=== PATIENT | male | born 1950 | race Caucasian/White ===

== ENCOUNTER 2016-11-05 11:32 | Emergency (ER) | payer OTHER ==
[2016-11-05 11:52] VITALS: BMI 19.3
--- NOTE | 2016-11-05 12:56 | PDOC ---
History of Present Illness - General Chief Complaint: Pain Stated Complaint: ABDOMINAL PAIN Time Seen by Provider: 11/05/16 12:39 History Source: Patient Exam Limitations: No Limitations - History of Present Illness Initial Comments: 66 yo M hx anxiety, diverticulitis, cholecystectomy presents with RLQ pain x1 day. He states that he has had multiple flares of diverticulitis in rob past, usually gets the pain in his RLQ rather than on the left side. He has been more anxious than usual, stating that he recently lost his anxiety medication, and due to state rules, has been unable to obtain a replacement prescription. Pain is moderate, nonradiating. No associated nausea, vomiting, or diarrhea. No fever. Past History - Past Medical History Allergies/Adverse Reactions: Allergies Allergy/AdvReac Type Severity Reaction Status Date / Time Cephalosporins Allergy Verified 11/05/16 11:50 tramadol Allergy Verified 11/05/16 11:50 Home Medications: Ambulatory Orders Albuterol Sulfate [Proair Respiclick] 90 mcg IH BID 11/05/16 Alprazolam 1 mg PO QID 11/05/16 Oxycodone HCl/Acetaminophen [Percocet 5-325 mg Tablet] 1 tab PO Q6H PRN #12 tablet MDD 4 tabs 11/05/16 COPD: Yes GI Disorders: Yes (LIVER) Psychiatric Problems: Yes (ANXIETY) - Surgical History Abdominal Surgery: Yes (HERNIA) Cholecystectomy: Yes Lung Surgery: Yes (R LUNG) - Psycho/Social/Smoking Cessation Hx Suicidal Ideation: No Smoking History: Former smoker Have you smoked in the past 12 months: Yes Number of Cigarettes Smoked Daily: 12 If you are a former smoker, when did you quit?: 3 MO Information on smoking cessation initiated: No Hx Alcohol Use: No Drug/Substance Use Hx: No Substance Use Type: None Review of Systems - Review of Systems Able to Perform ROS?: Yes Comments:: GENERAL/CONSTITUTIONAL: No fever or chills. No weakness. HEAD, EYES, EARS, NOSE AND THROAT: No change in vision. No ear pain or discharge. No sore throat. CARDIOVASCULAR: No chest pain or shortness of breath. RESPIRATORY: No cough, wheezing, or hemoptysis. GASTROINTESTINAL: No nausea, vomiting, diarrhea or constipation. +Abdominal pain. GENITOURINARY: No dysuria, frequency, or change in urination. MUSCULOSKELETAL: No joint or muscle swelling or pain. No neck or back pain. SKIN: No rash NEUROLOGIC: No headache, vertigo, loss of consciousness, or change in strength/ sensation. ENDOCRINE: No increased thirst. No abnormal weight change. HEMATOLOGIC/LYMPHATIC: No anemia, easy bleeding, or history of blood clots. ALLERGIC/IMMUNOLOGIC: No hives or skin allergy. *Physical Exam - Vital Signs Last Vital Signs Temp Pulse Resp BP Pulse Ox 97.4 F L 99 H 20 123/74 100 11/05/16 11:45 11/05/16 11:45 11/05/16 11:45 11/05/16 11:45 11/05/16 11:45 - Physical Exam Comments: GENERAL: Awake, alert, and fully oriented. Appears anxious. HEAD: No signs of trauma EYES: Pupils mid-dilated, but reactive. EOMI, sclera anicteric, conjunctiva clear ENT: Auricles normal inspection, hearing grossly normal, nares patent, oropharynx clear without exudates. Moist mucosa NECK: Normal ROM, supple, no lymphadenopathy, JVD, or masses LUNGS: Breath sounds equal, clear to auscultation bilaterally. No wheezes, and no crackles HEART: Regular rate and rhythm, normal S1 and S2, no murmurs, rubs or gallops ABDOMEN: Soft, +RLQ tenderness with guarding, normoactive bowel sounds. No rebound. No masses EXTREMITIES: Normal range of motion, no edema. No clubbing or cyanosis. No cords, erythema, or tenderness NEUROLOGICAL: Cranial nerves II through XII grossly intact. Normal speech, normal gait SKIN: Warm, Dry, normal turgor, no rashes or lesions noted. ED Treatment Course - LABORATORY CBC & Chemistry Diagram: 11/05/16 13:16 11/05/16 13:16 Medical Decision Making - Medical Decision Making 11/05/16 13:01 i-STOP Reference #: [id number]- Last rx for xanax was 10/21/16, 30 day supply. 11/05/16 18:[address] results discussed. He has eaten an entire tray of food. Stable for DC home. *DC/Admit/Observation/Transfer Diagnosis at time of Disposition: Abdominal pain Qualifiers: Abdominal location: right lower quadrant Qualified Code(s): R10.31 - Right lower quadrant pain - Discharge Dispostion Disposition: HOME Condition at time of disposition: Improved Admit: No - Prescriptions Prescriptions: Oxycodone HCl/Acetaminophen [Percocet 5-325 mg Tablet] 1 tab PO Q6H PRN #12 tablet MDD 4 tabs PRN Reason: Severe Pain - Referrals Referrals: Angelito Rod MD [Primary Care Provider] - - Patient Instructions Printed Discharge Instructions: DI for Abdominal Pain-Adult
[2016-11-05] MEDS ORDERED: ALPRAZolam 0.25 MG TABLET PO ONE (13:08)
[2016-11-05] MEDS ORDERED: morphine CARPU-JECT 4 MG/1 ML DISP.SYRIN IVPUSH ONE (13:08)
[2016-11-05] MEDS ORDERED: SODIUM CHLORIDE 1,000 ML IV STA (13:08)
[2016-11-05] MEDS ORDERED: morphine CARPU-JECT 4 MG/1 ML DISP.SYRIN ONE (13:22)
[2016-11-05] MEDS ORDERED: ALPRAZolam 0.25 MG TABLET ONE (13:24)
[2016-11-05 14:06] LABS: BASOPHIL 0.4 % (0-2.0); EOSINOPHIL 0.5 % (0-4.5); MCH 27.2 pg (25.7-33.7); MCHC 33.1 g/dl (32.0-35.9); MEAN CELL VOLUME 81.9 fl (80-96); MEAN PLT VOLUME 7.4 fl (7.5-11.1); NEUTROPHILS 76.7 % (42.8-82.8); PLATELET COUNT 309 K/MM3 (134-434); RDW 14.9 % (11.9-15.9); WHITE BLOOD COUNT 8.1 K/mm3 (4.0-10.0)
[2016-11-05 14:09] LABS: URINE APPEARANCE SLCLOUDY; URINE BILIRUBIN NEGATIVE (NEGATIVE); URINE BLOOD NEGATIVE (NEGATIVE); URINE COLOR YELLOW; URINE GLUCOSE (UA) NEGATIVE (NEGATIVE); URINE KETONE TRACE (NEGATIVE); URINE LEUK ESTERASE NEGATIVE (NEGATIVE); URINE NITRITE NEGATIVE (NEGATIVE); URINE PROTEIN NEGATIVE (NEGATIVE); URINE UROBILINOGEN NEGATIVE E.U./dl (0.2-1.0)
[2016-11-05 14:20] LABS: URINE MARIJUANA THC NEGATIVE ng/ml (CUTOFF=50)
[2016-11-05 14:38] LABS: ALBUMIN 4.1 g/dl (3.4-5.0); ANION GAP 11 (8-16); BILIRUBIN,TOTAL 0.4 mg/dL (0.2-1.0); CALCIUM 9.8 mg/dL (8.5-10.1); CO2 29 mmol/L (21-32); CREATININE 0.9 mg/dL (0.7-1.3); GLUCOSE,RANDOM 82 mg/dL (74-106); SGOT/AST 23 U/L (15-37); SGPT/ALT 40 U/L (12-78); TOT PROT 7.9 g/dl (6.4-8.2)
[2016-11-05 14:39] LABS: ALK PHOS 107 U/L (45-117)
[2016-11-05 19:11] VITALS: BP 114/65; PULSE 79; TEMP 98.6
== END 2016-11-05 19:12 | disposition home or self-care (01) ==
LOC: JER 11:32
PROC: 3E033NZ Introduction of Analgesics, Hypnotics, Sedatives into Peripheral Vein, Percutaneous Approach (ICD-10-PCS; principal; 2016-11-05)
DX: R10.31 Right lower quadrant pain (principal); J44.9 Chronic obstructive pulmonary disease, unspecified; F41.9 Anxiety disorder, unspecified; Z87.19 Personal history of other diseases of the digestive system
CPT/HCPCS: 36415; 74177-TC; 80053; 80307; 81003; 83690; 85025; 96374; 99283-25

== ENCOUNTER 2016-11-09 20:56 | Emergency (ER) | payer OTHER ==
[2016-11-09 21:06] VITALS: TEMP 98; BMI 19.8
[2016-11-09] MEDS ORDERED: ALPRAZolam 0.25 MG TABLET ONE (21:58)
--- NOTE | 2016-11-09 21:58 | PDOC ---
History of Present Illness - General History Source: Patient Exam Limitations: No Limitations - History of Present Illness Initial Comments: 11/09/16 22:13 The patient is a 66 year old male, with a significant past medical history of anxiety, diverticulitis(multiple flares in the past), mitral valve prolapse, and COPD, who presents to the emergency department complaining of abdominal pain for several days. The patient describes the pain as sharp and nonradiating in nature. The patient reports he has a history of chronic abdominal pain, but states his abdominal pain the past 2 days has been intolerable. The patient recently presented to the ED on 11/05/16 complaining of similar abdominal pain. As per ED documentation on 11/05/16 the patient reported he has been increasingly anxious s/p losing his anxiety medication and has been unable to obtain a replacement prescription due to state regulations. Today the patient reports he took unknown amounts of percocet and benadryl. The patient reports cutting his left forearm and right side of the neck secondary to severe abdominal pain. The patient denies any hallucinations (not seeing or hearing things) or previous suicidal ideations. The patient denies any fever, chills, cough, headache, or dizziness. The patient denies any nausea, vomiting, or changes in urinary output. The patient denies chest pain, diaphoresis, palpitations, or shortness of breath. Allergies: Cephalosporins, Ketorolac tromethamine, tramadol Past Surgical History: Cholecystectomy, hernia repair Social History: Non-smoker. Denies alcohol or drug use. <Jazzy Carroll - Last Filed: 11/10/16 06:18> - General History Source: Patient <Urbano Stark - Last Filed: 11/15/16 19:48> - General Chief Complaint: Psychiatric Stated Complaint: INJURY Time Seen by Provider: 11/09/16 21:39 Past History <Jazzy Carroll - Last Filed: 11/10/16 06:18> - Past Medical History Cardiac Disorders: Yes (MITRAL VALVE PROLAPSE) COPD: Yes GI Disorders: Yes (DIVERTICULITIS) Psychiatric Problems: Yes (ANXIETY) - Surgical History Abdominal Surgery: Yes (HERNIA) Cholecystectomy: Yes Lung Surgery: Yes (B/L LUNG) - Psycho/Social/Smoking Cessation Hx Suicidal Ideation: Yes Smoking History: Current every day smoker Have you smoked in the past 12 months: Yes Number of Cigarettes Smoked Daily: 20 If you are a former smoker, when did you quit?: 3 MO Information on smoking cessation initiated: No Hx Alcohol Use: No Drug/Substance Use Hx: Yes (PRESCRIBED) Substance Use Type: Prescribed <Urbano Stark - Last Filed: 11/15/16 19:48> - Past Medical History Allergies/Adverse Reactions: Allergies Allergy/AdvReac Type Severity Reaction Status Date / Time Cephalosporins Allergy Verified 11/09/16 21:02 ketorolac tromethamine Allergy Verified 11/09/16 21:02 [From Toradol] tramadol Allergy Verified 11/09/16 21:02 Home Medications: Ambulatory Orders Albuterol Sulfate [Proair Respiclick] 90 mcg IH BID 11/05/16 Alprazolam 1 mg PO QID 11/05/16 Oxycodone HCl/Acetaminophen [Percocet 5-325 mg Tablet] 1 tab PO Q6H PRN #12 tablet MDD 4 tabs 11/05/16 Clindamycin [Cleocin -] 450 mg PO Q6H #84 capsule 11/10/16 Review of Systems - Review of Systems Able to Perform ROS?: Yes Comments:: 11/09/16 22:13 CONSTITUTIONAL: Absent: fever, chills, diaphoresis, generalized weakness, malaise, loss of appetite HEENT: Absent: rhinorrhea, nasal congestion, throat pain, throat swelling, difficulty swallowing, mouth swelling, ear pain, eye pain, visual Changes CARDIOVASCULAR: Absent: chest pain, syncope, palpitations, irregular heart rate, lightheadedness , peripheral edema RESPIRATORY: Absent: cough, shortness of breath, dyspnea with exertion, orthopnea, wheezing, stridor, hemoptysis GASTROINTESTINAL: Present: +Abdominal pain Absent: abdominal distension, nausea, vomiting, diarrhea, constipation, melena, hematochezia GENITOURINARY: Absent: dysuria, frequency, urgency, hesitancy, hematuria, flank pain, genital pain MUSCULOSKELETAL: Absent: myalgia, arthralgia, joint swelling SKIN: Absent: rash, itching, pallor HEMATOLOGIC/IMMUNOLOGIC: Absent: easy bleeding, easy bruising, lymphadenopathy, frequent infections ENDOCRINE: Absent: unexplained weight gain, unexplained weight loss, heat intolerance, cold intolerance NEUROLOGIC: Absent: headache, focal weakness or paresthesias, dizziness, unsteady gait, seizure, mental status changes, bladder or bowel incontinence PSYCHIATRIC: Present: +anxiety, +suicidal ideation Absent: depression, homicidal ideation, hallucinations. <Jazzy Carroll - Last Filed: 11/10/16 06:18> *Physical Exam - Vital Signs Last Vital Signs Temp Pulse Resp BP Pulse Ox 98.0 F 93 H 16 174/103 97 11/09/16 21:03 11/09/16 21:03 11/09/16 21:03 11/09/16 21:03 11/09/16 21:03 - Physical Exam Comments: 11/09/16 22:14 GENERAL: Well developed, well nourished. Awake and alert. Mild distress with pressured speech. HEENT: Normocephalic, atraumatic. PERRLA, EOMI. No conjunctival pallor. Sclera are non- icteric. Moist mucous membranes. Oropharynx is clear. NECK: Supple. Full ROM. No JVD. Carotid pulses 2+ and symmetric, without bruits. No thyromegaly. No lymphadenopathy. CARDIOVASCULAR: Regular rate and rhythm. No murmurs, rubs, or gallops. Distal pulses are 2+ and symmetric. PULMONARY: No evidence of respiratory distress. Lungs clear to auscultation bilaterally. No wheezing, rales or rhonchi. ABDOMINAL: Diffusely tender, with some guarding but no rebound. Non-distended. No organomegaly. Normoactive bowel sounds. Well healed wounds to the right mid abdomen. MUSCULOSKELETAL Normal range of motion at all joints. No bony deformities or tenderness. No CVA tenderness. EXTREMITIES: No cyanosis. No clubbing. No edema. No calf tenderness. SKIN: Warm and dry. Normal capillary refill. No rashes. No jaundice. Healing wounds on the right side of the neck and the left forearm. NEUROLOGICAL: Alert, awake, appropriate. Cranial nerves 2-12 intact. No deficits to light touch and temperature in face, upper extremities and lower extremities. No motor deficits in the in face, upper extremities and lower extremities. Normoreflexic in the upper and lower extremities. Normal speech. Toes are down- going bilaterally. Gait is normal without ataxia. PSYCHIATRIC: Cooperative. Good eye contact. Appropriate mood and affect. <Jazzy Carroll - Last Filed: 11/10/16 06:18> - Vital Signs Last Vital Signs Temp Pulse Resp BP Pulse Ox 98.0 F 93 H 16 174/103 97 11/09/16 21:03 11/09/16 21:03 11/09/16 21:03 11/09/16 21:03 11/09/16 21:03 <Urbano Stark - Last Filed: 11/15/16 19:48> ED Treatment Course - LABORATORY CBC & Chemistry Diagram: 11/09/16 22:00 11/09/16 22:00 - Medications Given in the ED: ED Medications Discontinued Medications Generic Name Dose Route Start Last Admin Trade Name Freq PRN Reason Stop Dose Admin Alprazolam 0.5 mg 11/09/16 22:01 11/09/16 22:10 Xanax - PO 11/09/16 22:02 0.5 mg ONCE ONE Administration <Jazzy Carroll - Last Filed: 11/10/16 06:18> - LABORATORY CBC & Chemistry Diagram: 11/09/16 22:00 11/09/16 22:00 <Urbano Stark - Last Filed: 11/15/16 19:48> Medical Decision Making - Medical Decision Making 11/10/16 06:14 First call placed to Dr Rod at 06:14. Case discussed with Dr. Rod, patient's PCP, at 06:16. Dr. Rod is aware that the patient is here in the ED. Awaiting psychiatric evaluation. <Jazzy Carroll - Last Filed: 11/10/16 06:18> - Medical Decision Making 11/15/16 19:48 Dr. Stark: The scribe's documentation has been prepared under my direction and personally reviewed by me in its entirery. I confirm that the note above accurately reflects all work, treatment, procedures, and medical decision making performed by me. <Urbano Stark - Last Filed: 11/15/16 19:48> *DC/Admit/Observation/Transfer - Attestations Scribe Attestion: 11/09/16 22:17 Documentation prepared by Jazzy Carroll, acting as medical research scientist for Urbano Stark DO. <Jazzy Carroll - Last Filed: 11/10/16 06:18> <Urbano Stark - Last Filed: 11/15/16 19:48> Diagnosis at time of Disposition: Lacerations of multiple sites of left arm - Discharge Dispostion Disposition: HOME Condition at time of disposition: Stable - Prescriptions Prescriptions: Clindamycin [Cleocin -] 450 mg PO Q6H #84 capsule - Patient Instructions Printed Discharge Instructions: DI for Open Laceration
[2016-11-09] MEDS ORDERED: ALPRAZolam 0.25 MG TABLET PO ONE (22:01)
[2016-11-09] MEDS ORDERED: SODIUM CHLORIDE 1,000 ML IV STA (22:01)
[2016-11-09 22:17] LABS: BASOPHIL 0.7 % (0-2.0); EOSINOPHIL 0.9 % (0-4.5); MCH 26.8 pg (25.7-33.7); MCHC 32.9 g/dl (32.0-35.9); MEAN CELL VOLUME 81.5 fl (80-96); MEAN PLT VOLUME 7.6 fl (7.5-11.1); PLATELET COUNT 274 K/MM3 (134-434); RDW 15.6 % (11.9-15.9); WHITE BLOOD COUNT 8.6 K/mm3 (4.0-10.0)
[2016-11-09 22:39] LABS: ALBUMIN 3.8 g/dl (3.4-5.0); ALCOHOL < 5.0 mg/dl (0-5); ANION GAP 9 (8-16); BILIRUBIN,TOTAL 0.3 mg/dL (0.2-1.0); CALCIUM 9.8 mg/dL (8.5-10.1); CO2 28 mmol/L (21-32); CREATININE 0.9 mg/dL (0.7-1.3); GLUCOSE,RANDOM 92 mg/dL (74-106); SALICYLATE < 4.0 mg/dl (0.0-30.0); SGOT/AST 58 U/L (15-37); SGPT/ALT 46 U/L (12-78); TOT PROT 7.3 g/dl (6.4-8.2)
[2016-11-09 22:40] LABS: ALK PHOS 85 U/L (45-117)
[2016-11-10 04:22] VITALS: BP 143/76; PULSE 76
[2016-11-10] MEDS ORDERED: ACETAMINOPHEN 325 MG TABLET (FP) ONE (04:41)
[2016-11-10] MEDS ORDERED: ACETAMINOPHEN 325 MG TABLET (FP) PO ONE ×2 (04:46→12:13)
--- NOTE | 2016-11-10 08:11 | PDOC ---
[id number] 97 11/09/16 21:03 11/10/16 04:21 11/10/16 04:21 11/10/16 04:21 11/10/16 04:21 <Dede Manzo - Last Filed: 11/10/16 09:24> - Vital Signs Last Vital Signs Temp Pulse Resp BP Pulse Ox 98.0 F 76 16 143/76 97 11/09/16 21:03 11/10/16 04:21 11/10/16 04:21 11/10/16 04:21 11/10/16 04:21 <Agustina De La Garza - Last Filed: 11/14/16 08:56> ED Treatment Course - LABORATORY CBC & Chemistry Diagram: 11/09/16 22:00 11/09/16 22:00 - ADDITIONAL ORDERS Additional order review: Laboratory Results 11/10/16 11/10/16 11/10/16 22:00 07:58 07:58 Sodium Potassium Chloride Carbon Dioxide Anion Gap BUN Creatinine Creat Clearance w eGFR Random Glucose Calcium Magnesium Total Bilirubin AST ALT Alkaline Phosphatase Total Protein Albumin Urine Color Yellow Urine Appearance Clear Urine pH 5.0 Ur Specific [place] 1.033 Urine Protein 1+ H Urine Glucose (UA) 1+ H Urine Ketones Negative Urine Blood Negative Urine Nitrite Negative Urine Bilirubin Negative Urine Urobilinogen 2.0 e.u/dl Ur Leukocyte Esterase Negative Urine RBC 1 Urine WBC 8 Granular Casts 2 Urine Mucus Many Salicylates Opiates Screen Negative Methadone Screen Negative Acetaminophen Barbiturate Screen Negative Phencyclidine Screen Negative Ur Amphetamines Screen Negative MDMA (Ecstasy) Screen Negative Benzodiazepines Screen Positive Cocaine Screen Negative U Marijuana (THC) Screen Negative Alcohol, Quantitative Blood Type Antibody Screen Antibody Identification Antigen Identification c Antigen - NEGATIVE 11/09/16 11/09/16 11/09/16 22:00 22:00 22:00 Sodium Potassium Chloride Carbon Dioxide Anion Gap BUN Creatinine Creat Clearance w eGFR Random Glucose Calcium Magnesium 2.3 Total Bilirubin AST ALT Alkaline Phosphatase Total Protein Albumin Urine Color Urine Appearance Urine pH Ur Specific [place] Urine Protein Urine Glucose (UA) Urine Ketones Urine Blood Urine Nitrite Urine Bilirubin Urine Urobilinogen Ur Leukocyte Esterase Urine RBC Urine WBC Granular Casts Urine Mucus Salicylates < 4.0 Opiates Screen Methadone Screen Acetaminophen < 2.000 L Barbiturate Screen Phencyclidine Screen Ur Amphetamines Screen MDMA (Ecstasy) Screen Benzodiazepines Screen Cocaine Screen U Marijuana (THC) Screen Alcohol, Quantitative < 5.0 Blood Type A POSITIVE Antibody Screen Positive H Antibody Identification Anti-e and anti-c Antigen Identification E Antigen - NEGATIVE 11/09/16 22:00 Sodium 140 Potassium 3.3 L Chloride 103 Carbon Dioxide 28 Anion Gap 9 BUN 23 H Creatinine 0.9 Creat Clearance w eGFR > 60 Random Glucose 92 Calcium 9.8 Magnesium Total Bilirubin 0.3 D AST 58 H D ALT 46 Alkaline Phosphatase 85 D Total Protein 7.3 Albumin 3.8 Urine Color Urine Appearance Urine pH Ur Specific [place] Urine Protein Urine Glucose (UA) Urine Ketones Urine Blood Urine Nitrite Urine Bilirubin Urine Urobilinogen Ur Leukocyte Esterase Urine RBC Urine WBC Granular Casts Urine Mucus Salicylates Opiates Screen Methadone Screen Acetaminophen Barbiturate Screen Phencyclidine Screen Ur Amphetamines Screen MDMA (Ecstasy) Screen Benzodiazepines Screen Cocaine Screen U Marijuana (THC) Screen Alcohol, Quantitative Blood Type Antibody Screen Antibody Identification Antigen Identification 11/09/16 22:00 RBC 4.24 MCV 81.5 MCHC 32.9 RDW 15.6 MPV 7.6 Neutrophils % 77.0 Lymphocytes % 11.7 Monocytes % 9.7 Eosinophils % 0.9 Basophils % 0.7 - Medications Given in the ED: ED Medications Discontinued Medications Generic Name Dose Route Start Last Admin Trade Name Timoteo PRN Reason Stop Dose Admin Acetaminophen 650 mg 11/10/16 04:46 11/10/16 04:54 Tylenol - PO 11/10/16 04:47 650 mg ONCE ONE Administration Alprazolam 0.5 mg 11/09/16 22:01 11/09/16 22:10 Xanax - PO 11/09/16 22:02 0.5 mg ONCE ONE Administration Clindamycin HCl 450 mg 11/10/16 08:14 11/10/16 08:43 Cleocin - PO 11/10/16 08:15 450 mg ONCE ONE Administration Diphtheria/Tetanus/Acell Pertussis 0.5 ml 11/10/16 08:14 11/10/16 08:40 Adacel Adolescent/Adult - IM 11/10/16 08:15 0.5 ml .ONCE ONE Administration Sodium Chloride 1,000 mls @ 1,000 mls/hr 11/09/16 22:01 11/09/16 22:09 Normal Saline - IV 11/09/16 23:00 1,000 mls/hr ASDIR STA Administration <Dede Manzo - Last Filed: 11/10/16 09:24> - LABORATORY CBC & Chemistry Diagram: 11/09/16 22:00 11/09/16 22:00 - ADDITIONAL ORDERS Additional order review: Laboratory Results 11/10/16 11/09/16 11/09/16 22:00 22:00 22:00 Sodium Potassium Chloride Carbon Dioxide Anion Gap BUN Creatinine Creat Clearance w eGFR Random Glucose Calcium Magnesium 2.3 Total Bilirubin AST ALT Alkaline Phosphatase Total Protein Albumin Salicylates Acetaminophen Alcohol, Quantitative Blood Type A POSITIVE Antibody Screen Positive H Antibody Identification Anti-e and anti-c Antigen Identification c Antigen - NEGATIVE E Antigen - NEGATIVE 11/09/16 11/09/16 22:00 22:00 Sodium 140 Potassium 3.3 L Chloride 103 Carbon Dioxide 28 Anion Gap 9 BUN 23 H Creatinine 0.9 Creat Clearance w eGFR > 60 Random Glucose 92 Calcium 9.8 Magnesium Total Bilirubin 0.3 D AST 58 H D ALT 46 Alkaline Phosphatase 85 D Total Protein 7.3 Albumin 3.8 Salicylates < 4.0 Acetaminophen < 2.000 L Alcohol, Quantitative < 5.0 Blood Type Antibody Screen Antibody Identification Antigen Identification 11/09/16 22:00 RBC 4.24 MCV 81.5 MCHC 32.9 RDW 15.6 MPV 7.6 Neutrophils % 77.0 Lymphocytes % 11.7 Monocytes % 9.7 Eosinophils % 0.9 Basophils % 0.7 - Medications Given in the ED: ED Medications Discontinued Medications Generic Name Dose Route Start Last Admin Trade Name Freq PRN Reason Stop Dose Admin Acetaminophen 650 mg 11/10/16 04:46 11/10/16 04:54 Tylenol - PO 11/10/16 04:47 650 mg ONCE ONE Administration Alprazolam 0.5 mg 11/09/16 22:01 11/09/16 22:10 Xanax - PO 11/09/16 22:02 0.5 mg ONCE ONE Administration Sodium Chloride 1,000 mls @ 1,000 mls/hr 11/09/16 22:01 11/09/16 22:09 Normal Saline - IV 11/09/16 23:00 1,000 mls/hr ASDIR STA Administration <Agustina De La Garza - Last Filed: 11/14/16 08:56> Medical Decision Making - Medical Decision Making 11/10/16 08:[address] Parry cell phone at [phone]. Left message, awaiting call back. 11/10/16 09:[address] Parry. He will come see the patient in a few hours. <Dede Manzo - Last Filed: 11/10/16 09:24> - Medical Decision Making 11/10/16 08:17 Patient assessed. He is known to me from prior ED visit for abd pain. On exam he is noted to have two lacerations to R throat, scabbed over, with mild surrounding erythema. Also with 3 lacerations to the L arm, also scabbed over, with mild surrounding erythema. He does not recall his last tetanus. I have ordered a booster. Will also give abx, as there are signs of a mild cellulitis. Awaiting callback from Dr. Parry. 11/10/16 12:21 Dr. Parry evaluated patient, cleared him for DC home. See consult for details. Will DC patient home with PO abx for the mild cellulitis around the lacerations. <Agustina De La Garza - Last Filed: 11/14/16 08:56> *DC/Admit/Observation/Transfer - Attestations Scribe Attestion: 11/10/16 09:25 Documentation prepared by Dede Manzo, acting as medical clinic manager for Agustina De La Garza MD. <Dede Manzo - Last Filed: 11/10/16 09:24> - Discharge Dispostion Admit: No <Agustina De La Garza - Last Filed: 11/14/16 08:56> Diagnosis at time of Disposition: Lacerations of multiple sites of left arm Qualifiers: Encounter type: initial encounter Qualified Code(s): S41.112A - Laceration without foreign body of left upper arm, initial encounter - Discharge Dispostion Disposition: HOME Condition at time of disposition: Stable - Prescriptions Prescriptions: Clindamycin [Cleocin -] 450 mg PO Q6H #84 capsule - Patient Instructions Printed Discharge Instructions: DI for Open Laceration
[2016-11-10] MEDS ORDERED: CLINDAMYCIN HCL 150 MG CAPSULE (FP) PO ONE (08:14)
[2016-11-10] MEDS ORDERED: DIPHTH,PERTUSS(ACELL),TET VAC 0.5 ML VIAL IM ONE (08:14)
[2016-11-10] MEDS ORDERED: CLINDAMYCIN HCL 150 MG CAPSULE (FP) ONE (08:23)
[2016-11-10 08:40] LABS: URINE APPEARANCE CLEAR; URINE BILIRUBIN NEGATIVE (NEGATIVE); URINE BLOOD NEGATIVE (NEGATIVE); URINE COLOR YELLOW; URINE GLUCOSE (UA) 1+ (NEGATIVE); URINE KETONE NEGATIVE (NEGATIVE); URINE LEUK ESTERASE NEGATIVE (NEGATIVE); URINE NITRITE NEGATIVE (NEGATIVE); URINE UROBILINOGEN 2.0 E.U/dl E.U./dl (0.2-1.0)
[2016-11-10 08:45] LABS: URINE PROTEIN 1+ (NEGATIVE)
[2016-11-10 08:49] LABS: URINE MARIJUANA THC NEGATIVE ng/ml (CUTOFF=50)
[2016-11-10 08:50] LABS: GRANULAR CASTS 2 /lpf; URINE MUCUS MANY; URINE RBC 1 /hpf (0-3); URINE WBC 8 /hpf (3-5)
--- NOTE | 2016-11-10 12:23 | CON.PSY ---
Psychiatry Consult Chief Complaint: I cut myself superficially Two days ago. I came in today for some medication. I dfid not try to kill myself. I lost all my Xanax pills. Can you give me a buzz feed pill. Symptoms: reports: Anxiety - Previous Psychiatric Treatment Outpatient: Less than 6 mos ago Inpatient: None - Previous Substance Abuse Treatment Outpatient: None Inpatient: None - Reason for Previous Treatment Reason for Previous Treatment: Anxiety or Panic Disorder - Allergies Allergies: Allergies Allergy/AdvReac Type Severity Reaction Status Date / Time Cephalosporins Allergy Verified 11/09/16 21:02 ketorolac tromethamine Allergy Verified 11/09/16 21:02 [From Toradol] tramadol Allergy Verified 11/09/16 21:02 - Current Living Status Usual Living Arrangement: Alone - Current Mental Status Evaluation Appearance: Disheveled Attitude: Cooperative - Affect Affect: Constrictive Appropriateness: Appropriate to Content - Mood Mood: Euthymic - Speech/Language Expressive: Coherent - Psychomotor Activity Psychomotor Activity: Normal - Thought Process Thought Process: Intact - Thought Content Hallucinations: Absent Delusions: Absent - Self Perception Self Perception: No Impairment - Cognition Attention: Alert Orientation: Time Memory, Immediate Recall: Intact Memory, Short Term: 3/3 Memory, Remote with Promptin/3 - Concentration Serial Sevens Intact: No Simple Calculations Intact: No - Abstraction Proverb Interpretation: Intact Judgement: Minimally Impaired - Insight Insight: Intact - Impulse Control Impulse Control: Minimally Impaired - Suicidal Ideation Suicidal Ideation: No - Homicidal Ideation Homicidal Ideation: No Plan: none Assessment/Plan 1) Patient is not suicidal at this time. Sustained his superficial lacerations two days ago. Came to ER looking for mariela\in meds and xanax. 2) follow up at [facility] clonic.
== END 2016-11-10 12:44 | disposition home or self-care (01) ==
LOC: JER 20:56
PROC: 3E0234Z Introduction of Serum, Toxoid and Vaccine into Muscle, Percutaneous Approach (ICD-10-PCS; principal; 2016-11-09)
PROC: 3E0337Z Introduction of Electrolytic and Water Balance Substance into Peripheral Vein, Percutaneous Approach (ICD-10-PCS; 2016-11-09)
DX: S41.112A Laceration without foreign body of left upper arm, initial encounter (principal); X78.9XXA Intentional self-harm by unspecified sharp object, initial encounter; Y93.89 Activity, other specified; Y92.9 Unspecified place or not applicable; F41.9 Anxiety disorder, unspecified; J44.9 Chronic obstructive pulmonary disease, unspecified; I34.1 Nonrheumatic mitral (valve) prolapse; F17.210 Nicotine dependence, cigarettes, uncomplicated
CPT/HCPCS: 36415; 80053; 80307; 81003; 81015; 83735; 85025; 86850; 86870; 86900; 86901; 86902; 99284-25

== ENCOUNTER 2021-12-26 14:46 | Observation (INO) | payer OTHER ==
[2021-12-26 17:57] LABS: BASO % 0.2 % (0-2.0); EOS % 0.5 % (0-4.5); HEMATOCRIT 43.5 % (35.4-49); HEMOGLOBIN 14.8 GM/dL (11.7-16.9); MCH 28.3 pg (25.7-33.7); MCHC 34.1 g/dl (32.0-35.9); MEAN PLT VOLUME 7.5 fl (7.5-11.1); MONO % 7.7 % (3.8-10.2); NEUT % 75.6 % (42.8-82.8); PLATELET COUNT 270 10^3/uL (134-434); RBC 5.24 M/mm3 (4.00-5.60); RDW 13.9 % (11.9-15.9); WHITE BLOOD COUNT 7.4 K/mm3 (4.0-10.0)
[2021-12-26] MEDS ORDERED: ASPIRIN 81 MG CHEWABLE TABLETS PO ONE (18:27)
[2021-12-26 18:45] LABS: ALBUMIN 3.8 g/dl (3.4-5.0); BILIRUBIN,TOTAL 0.5 mg/dL (0.2-1); CALCIUM 9.8 mg/dL (8.5-10.1); CREATININE 1.2 mg/dL (0.55-1.3); TOT PROT 7.3 g/dl (6.4-8.2)
[2021-12-26] MEDS ORDERED: ASPIRIN 81 MG CHEWABLE TABLETS ONE (18:52)
[2021-12-26] MEDS ORDERED: ACETAMINOPHEN 325 MG TABLET (FP) PO PRN (20:55)
[2021-12-26] MEDS ORDERED: POLYETHYLENE GLYCOL (HEALTHYLAX) 3350 17 GM PACKET PO PRN (20:55)
[2021-12-26] MEDS ORDERED: clonazePAM 0.5 MG TABLET PO PRN (21:00)
[2021-12-26] MEDS ORDERED: PATIENT'S OWN MEDICATION (NON-FORMULARY) (Albuterol Sulfate [Proair Respiclick] 90 MCG Aer IH SCH (22:00)
[2021-12-26] MEDS ORDERED: ATORVASTATIN CA 80 MG TABLET (FP) PO SCH (22:00)
[2021-12-26 22:20] VITALS: BMI 24.7
[2021-12-26] MEDS: hydrOXYzine PAMOATE 25 MG CAPSULE (FP) PO SCH (22:39)
[2021-12-27 07:50] LABS: INR 1.02 (0.83-1.09); PROTHROMBIN TIME (PATIENT) 11.7 SEC (9.7-13.0)
[2021-12-27 07:52] LABS: ACTIVATED PTT 29.7 SECONDS (25.2-36.5)
[2021-12-27 08:56] LABS: BASO % 0.6 % (0-2.0); EOS % 2.2 % (0-4.5); HEMATOCRIT 40.8 % (35.4-49); HEMOGLOBIN 13.9 GM/dL (11.7-16.9); LYMPH % 27.9 % (8-40); MCH 28.6 pg (25.7-33.7); MCHC 33.9 g/dl (32.0-35.9); MEAN CELL VOLUME 84.4 fl (80-96); MEAN PLT VOLUME 7.6 fl (7.5-11.1); MONO % 12.4 % (3.8-10.2); NEUT % 56.9 % (42.8-82.8); PLATELET COUNT 229 10^3/uL (134-434); RBC 4.84 M/mm3 (4.00-5.60); RDW 14.2 % (11.9-15.9); WHITE BLOOD COUNT 7.6 K/mm3 (4.0-10.0)
[2021-12-27] MEDS: hydrOXYzine PAMOATE 25 MG CAPSULE (FP) PO SCH (09:01)
[2021-12-27 09:03] LABS: ALBUMIN 3.4 g/dl (3.4-5.0); BLOOD UREA NITROGEN 24.8 mg/dL (7-18); MAGNESIUM 2.5 mg/dL (1.8-2.4)
[2021-12-27 09:07] LABS: BILIRUBIN,TOTAL 0.5 mg/dL (0.2-1); CREATININE 1.2 mg/dL (0.55-1.3); TOT PROT 6.7 g/dl (6.4-8.2)
[2021-12-27] MEDS ORDERED: ALBUTEROL SO4 HFA INHALER IH PRN (09:32)
[2021-12-27] MEDS ORDERED: VENLAFAXINE HCL 100 MG TABLET PO SCH (10:00)
[2021-12-27] MEDS ORDERED: PANTOPRAZOLE 40 MG TABLET PO SCH (10:00)
[2021-12-27] MEDS ORDERED: ASPIRIN COATED 81 MG TABLET.EC PO SCH (10:00)
[2021-12-27] MEDS ORDERED: CHOLECALCIFEROL (VIT D3) 1,000 UNIT (25 MCG) TABLET PO SCH (10:00)
[2021-12-27] MEDS ORDERED: TIOTROPIUM BROMIDE 2.5 MCG (SPIRIVA) RESPIMAT INHALER IH SCH (10:00)
[2021-12-27] MEDS ORDERED: HYDROCHLOROTHIAZIDE 12.5 MG CAPSULE (FP) PO SCH (10:00)
[2021-12-27] MEDS ORDERED: CLOPIDOGREL BISULFATE 75 MG TABLET (FP) PO SCH (10:00)
[2021-12-27] MEDS ORDERED: VENLAFAXINE HCL PO SCH (11:45)
[2021-12-27 13:54] VITALS: BP 112/63; PULSE 66; TEMP 97.8
[2021-12-28] MEDS ORDERED: ENOXAPARIN NA (PORCINE) 40 MG/0.4 ML DISP.SYRIN SQ SCH (10:00)
== END 2021-12-27 14:25 | disposition home or self-care (01) ==
LOC: FER 14:46 → UNDOADMOB 20:17 → FM/S 20:17 → INTOOBSV 20:17 → FM/S 20:58
PROVIDERS: ADMIT Hospitalist; ATTEND Nurse Practitioner Acute Care
DX: I25.10 Atherosclerotic heart disease of native coronary artery without angina pectoris (principal); R07.9 Chest pain, unspecified; Z95.5 Presence of coronary angioplasty implant and graft; I10 Essential (primary) hypertension; J44.9 Chronic obstructive pulmonary disease, unspecified; E78.5 Hyperlipidemia, unspecified; F41.9 Anxiety disorder, unspecified; I34.1 Nonrheumatic mitral (valve) prolapse; K57.92 Diverticulitis of intestine, part unspecified, without perforation or abscess without bleeding; Z87.738 Personal history of other specified (corrected) congenital malformations of digestive system; F17.210 Nicotine dependence, cigarettes, uncomplicated
CPT/HCPCS: 36415; 71046-TC-FY; 80053; 83735; 84484; 85025; 85610; 85730; 93005; 99285-25; C9803-CS; G0378; U0003; U0005